=== PATIENT | male | born 1990 | race Caucasian/White ===

== ENCOUNTER 2018-11-27 20:59 | Emergency (ER) | payer SELFPAY ==
[2018-11-27] MEDS ORDERED: Metoclopramide 10 MG/2 ML SDV IVPUSH ONE (21:23)
[2018-11-27] MEDS ORDERED: Sodium Chloride 0.9% 10 ML Syringe FLUSH PRN (21:23)
[2018-11-27] MEDS ORDERED: diphenhydrAMINE 50 MG/ML SDV IVPUSH ONE (21:23)
[2018-11-27] MEDS ORDERED: Ketorolac 30 MG/ML SDV IVPUSH ONE (21:23)
[2018-11-27 21:29] VITALS: BP 129/77; PULSE 80
[2018-11-27] MEDS ORDERED: Sodium Chloride 0.9% 1,000 ML IV SCH (21:30)
--- NOTE | 2018-11-27 21:41 | EDM.PDOC ---
ED HPI GENERAL MEDICAL PROBLEM - General Chief Complaint: Headache Stated Complaint: HEADACHE Time Seen by Provider: 11/27/18 21:22 Source of Information: Reports: Patient, RN Notes Reviewed History Limitations: Reports: No Limitations - History of Present Illness INITIAL COMMENTS - FREE TEXT/NARRATIVE: The patient is a 28-year-old male who presents to the ED for evaluation of a headache. Patient notes that roughly 4-5 hours ago he developed a headache, this is noted to be kind his right eye, and in the occipital portion of his head. He states that this is a pulsating pain in nature. He did take a hot shower and this seemed to help relieve the pain for a while, but after the hot shower was done the pain came back again. Patient notes that he did get a little bit nauseous with this and vomited once. He states that he does do a lot of lifting at his job, and feels that his muscles are tense. He states he is light sensitive, but not sound sensitive, he is not seeing any spots or other visual aura. He has no prior history of migraines or headaches. He further denies any blood pressure issues. He states that he is a fairly healthy person otherwise. Treatments SUPERINTENDENT OF GENERATION: Reports: Other (see below) Other Treatments SUPERINTENDENT OF GENERATION: none Posterior Head Pain Score (Numeric/FACES): 8 - Related Data Allergies Allergy/AdvReac Type Severity Reaction Status Date / Time chicken derived Allergy Airway Verified 11/27/18 21:23 Tightness Home Meds: Home Meds . [No Known Home Meds] 11/27/18 [History] Past Medical History - Past Health History Medical/Surgical History: Denies Medical/Surgical History Social & Family History - Tobacco Use Smoking Status *Q: Never Smoker - Caffeine Use Caffeine Use: Reports: Soda - Recreational Drug Use Recreational Drug Use: No ED ROS GENERAL - Review of Systems Review Of Systems: See Below Constitutional: Denies: Fever, Chills HEENT: Reports: No Symptoms Respiratory: Reports: No Symptoms Cardiovascular: Reports: No Symptoms Endocrine: Reports: No Symptoms GI/Abdominal: Reports: No Symptoms : Reports: No Symptoms Musculoskeletal: Reports: No Symptoms Skin: Reports: No Symptoms Neurological: Reports: Headache Psychiatric: Reports: No Symptoms Hematologic/Lymphatic: Reports: No Symptoms Immunologic: Reports: No Symptoms - Physical Exam Exam: See Below Exam Limited By: No Limitations General Appearance: Alert, WD/WN, No Apparent Distress Eye Exam: Bilateral Eye: EOMI, Normal Inspection, PERRL Nose: Normal Inspection Throat/Mouth: Normal Inspection, Normal Lips, Normal Teeth, Normal Gums, Normal Oropharynx, Normal Voice, No Airway Compromise Head Exam: Atraumatic, Normocephalic Neck: Normal Inspection, Supple, Non-Tender, Full Range of Motion Respiratory/Chest: No Respiratory Distress, Lungs Clear, Normal Breath Sounds, No Accessory Muscle Use, Chest Non-Tender Cardiovascular: Normal Peripheral Pulses, Regular Rate, Rhythm, No Murmur GI/Abdominal: Normal Bowel Sounds, Soft, Non-Tender, No Distention, No Mass Neuro Exam (Abbreviated): Alert, Oriented, Normal Cognition, No Motor/Sensory Deficits Extremities: Normal Inspection, Normal Capillary Refill Psychiatric: Normal Affect, Normal Mood Skin Exam: Warm, Dry, Intact, Normal Color, No Rash Course - Vital Signs Last Recorded V/S: Last Vital Signs Temp 96.9 F 11/27/18 21:26 Pulse 80 11/27/18 21:26 Resp 20 11/27/18 21:26 BP 129/77 11/27/18 21:26 Pulse Ox 100 11/27/18 21:26 - Orders/Labs/Meds Orders: Active Orders 24 hr Category Date Time Status Peripheral IV Care [RC] . DIRECTED Care 11/27/18 21:24 Active Sodium Chloride 0.9% [Normal Saline] 1,000 ml Med 11/27/18 21:30 Active IV ASDIRECTED Sodium Chloride 0.9% [Saline Flush] Med 11/27/18 21:23 Active 10 ml FLUSH ASDIRECTED PRN Peripheral IV Insertion Adult [OM.PC] Routine Oth 11/27/18 21:24 Ordered Medication Orders Sodium Chloride (Normal Saline) 1,000 mls @ 125 mls/hr IV ASDIRECTED TIFFANIE Last Admin: 11/27/18 21:48 Dose: 125 mls/hr Sodium Chloride (Saline Flush) 10 ml FLUSH ASDIRECTED PRN PRN Reason: Keep Vein Open Last Admin: 11/27/18 21:52 Dose: 10 ml Meds: Medications Generic Name Dose Route Start Last Admin Trade Name Freq PRN Reason Stop Dose Admin Sodium Chloride 1,000 mls @ 125 mls/hr 11/27/18 21:30 11/27/18 21:48 Normal Saline IV 125 mls/hr ASDIRECTED TIFFANIE Administration Sodium Chloride 10 ml 11/27/18 21:23 11/27/18 21:52 Saline Flush FLUSH 10 ml ASDIRECTED PRN Administration Keep Vein Open Discontinued Medications Generic Name Dose Route Start Last Admin Trade Name Artieq PRN Reason Stop Dose Admin Diphenhydramine HCl 25 mg 11/27/18 21:23 11/27/18 21:53 Benadryl IVPUSH 11/27/18 21:24 25 mg ONETIME ONE Administration Ketorolac Tromethamine 30 mg 11/27/18 21:23 11/27/18 21:50 Toradol IVPUSH 11/27/18 21:24 30 mg ONETIME ONE Administration Metoclopramide HCl 10 mg 11/27/18 21:23 11/27/18 21:48 Reglan IVPUSH 11/27/18 21:24 10 mg ONETIME ONE Administration - Re-Assessments/Exams Free Text/Narrative Re-Assessment/Exam: 11/27/18 21:40 Patient presents to the ED for the evaluation of a headache. I did order an IV be placed, some IV fluids, 25 mg Benadryl, 10 mg Reglan, and 30 mg Toradol for initial management. 11/27/18 22:12 Patient was reassessed at bedside, and states that his headache has improved since the medication was administered. We will discharge home after some the IV fluids have been given a chance to work. Departure - Departure Time of Disposition: 22:13 Disposition: Home, Self-Care 01 Condition: Fair Clinical Impression: Tension-type headache - Discharge Information *PRESCRIPTION DRUG MONITORING PROGRAM REVIEWED*: No *COPY OF PRESCRIPTION DRUG MONITORING REPORT IN PATIENT KATERIN: No Instructions: Tension Headache, Adult, [id number] Referrals: Tanya Roman PA-C [Primary Care Provider] - Forms: ED Department Discharge Additional Instructions: You were evaluated in the ED for your headache. You were given a combination of medications and IV fluid for management. This did seem to provide you pretty good relief of your symptoms. Recommend that you go home and rest in a quiet darkened room. Try also to keep well hydrated. Please return to the ED if your symptoms should change or worsen. - My Orders Last 24 Hours: My Active Orders 11/27/18 21:23 Sodium Chloride 0.9% [Saline Flush] 10 ml FLUSH ASDIRECTED PRN 11/27/18 21:24 Peripheral IV Care [RC] . DIRECTED Peripheral IV Insertion Adult [OM.PC] Routine 11/27/18 21:30 Sodium Chloride 0.9% [Normal Saline] 1,000 ml IV ASDIRECTED - Assessment/Plan Last 24 Hours: My Active Orders 11/27/18 21:23 Sodium Chloride 0.9% [Saline Flush] 10 ml FLUSH ASDIRECTED PRN 11/27/18 21:24 Peripheral IV Care [RC] . DIRECTED Peripheral IV Insertion Adult [OM.PC] Routine 11/27/18 21:30 Sodium Chloride 0.9% [Normal Saline] 1,000 ml IV ASDIRECTED
== END 2018-11-27 22:41 | disposition home or self-care (01) ==
LOC: JD.ED 20:59
DX: G44.209 Tension-type headache, unspecified, not intractable (principal); Z91.018 Allergy to other foods
CPT/HCPCS: 96361; 96374; 96375; 99283; J1200; J1885; J2765; J7040

== ENCOUNTER 2021-09-03 21:12 | Emergency (ER) | payer OTHER ==
[2021-09-03 21:48] VITALS: BP 130/87; PULSE 89
== END 2021-09-03 23:29 | disposition home or self-care (01) ==
LOC: JD.ED 21:12
DX: S80.11XA Contusion of right lower leg, initial encounter (principal); Z91.018 Allergy to other foods; W22.8XXA Striking against or struck by other objects, initial encounter
CPT/HCPCS: 73590-26-RT; 73590-RT; 99282; 99283